=== PATIENT | male | born 1985 | race Caucasian/White ===

== ENCOUNTER 2020-11-13 17:13 | Emergency (ER) | payer SELFPAY ==
[~2020-11-13] VITALS: Ht 195.6 cm; Wt 98.7 kg
[2020-11-13 17:23] VITALS: BP 151/93
== END 2020-11-13 19:33 | disposition home or self-care (01) ==
LOC: ER 17:13
DX: G43.909 Migraine, unspecified, not intractable, without status migrainosus (principal); F41.9 Anxiety disorder, unspecified
CPT/HCPCS: 36415; 70450; 80048; 85025; 93005; 99285-25